=== PATIENT | female | born 1955 ===

== ENCOUNTER 2024-06-05 06:12 | Day surgery (SDC) | payer OTHER ==
[2024-05-30 08:42] LABS: PH,URINE 5.5 (5.0-8.0); URINE APPEARANCE Clear; URINE BILIRRUBIN Negative (NEGATIVE); URINE BLOOD Negative; URINE COLOR Yellow; URINE GLUCOSE Negative (NEGATIVE); URINE KETONE Negative (NEGATIVE); URINE LEUKOCYTE Moderate; URINE NITRATE Negative; URINE PROTEIN Negative (NEGATIVE)
[2024-05-30 08:43] LABS: URINE BACTERIA 539.2 uL (0.0-1933); URINE EPITHELIAL CELLS 30.2 uL (0.0-38.8); URINE RBC 6.7 uL (0.0-20.8); URINE WBC 45.2 uL (0.0-23.2)
[2024-05-30 08:50] LABS: HEMATOCRIT 38.1 % (36.0-45.00); HEMOGLOBIN 12.8 g/dL (12.0-15.00); MEAN CELL VOLUME 88.7 fL (80.00-100.00); MEAN CORPUSCULAR HEMOGLOBIN 29.8 pg (27.00-32.0); MEAN CORPUSCULAR HGB CONC 33.6 g/dl (32.0-36.0); PLATELET COUNT 260 K/uL (150-450); RED CELL DISTRIBUTION WIDTH 16.2 % (11.5-14.5)
[2024-05-30 09:16] LABS: PARTIAL THROMBOPLASTIN TIME 30.2 SECONDS (22.0-34.0); PROTHROMBIN TIME 10.9 SECONDS (9.0-11.5)
[2024-05-30 09:25] VITALS: BP 149/83
[2024-05-30 09:31] LABS: ALBUMIN 4.2 gm/dL (3.4-5.0); BILIRUBIN TOTAL 0.58 mg/dL (0.3-1.2); CALCIUM 10.1 mg/dL (8.5-10.1); CREATININE SERUM 0.65 mg/dL (0.55-1.02); GFR 90.11; POTASSIUM 4.03 mEq/L (3.5-5.1); TOTAL PROTEIN 8.2 gm/dL (6.4-8.2)
[2024-05-30 09:58] LABS: URINE CAST 0.15 uL (0.0-1.40)
[~2024-06-05 06:12] MED LIST: COZAAR100 MG PO; LIPITOR20 MG PO; METFORMIN HCL500 M3 PO; NORVASC10 MG PO
[2024-06-05] MEDS ORDERED: CIPROFLOXACIN IN 5 % DEXTROSE 400 MG/200 ML PIGGYBAG IV ONE (08:43)
[2024-06-05] MEDS ORDERED: POVIDONE-IODINE 118 ML BOTT TOP ONE (10:19)
[2024-06-05] MEDS ORDERED: BACTRIM DS TAB1 EACH PO (11:25)
[2024-06-05] MEDS ORDERED: IBU600 MG PO (11:25)
== END 2024-06-05 15:15 | disposition home or self-care (01) ==
LOC: CIR.AMB 06:12
PROVIDERS: ATTEND Obstetrics & Gynecology
DX: D39.8 Neoplasm of uncertain behavior of other specified female genital organs (principal); Z88.0 Allergy status to penicillin